=== PATIENT | male | born 1990 | race Caucasian/White ===

== ENCOUNTER 2018-05-04 17:47 | Emergency (ER) | payer BC ==
--- NOTE | 2018-05-04 17:57 | EDPHY ---
H & P Stated Complaint: SI Time Seen by Provider: 05/04/18 17:54 HPI/ROS: HPI: This is a 27-year-old male who presents with Chief Complaint: Depression, suicidal thoughts Location: psych Quality: Depression, suicidal Duration: Unknown Signs and Symptoms: no auditory hallucinations, no visual hallucinations, + suicidal ideation with a plan, no homicidal ideation, no paranoia Timing: Acute on chronic Severity: Moderate to severe Context: Patient is a student at [employer], presents voluntarily with worsening severe major depression and suicidal thoughts. He reports that he would drink excessively and take pills in order to end his life. He reports that Friday he took 15 pills of Benadryl in order to go to sleep. He reports that he "would not mind going to sleep and never waking up." Originally from [place]. 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 Patient reports that it is not unusual for him to take 15-30 pills of Benadryl at a time. Patient reports that he has a history of major depression and takes a medication for at a low-dose but is unsure of the name. Reports compliance with taking his psychiatric medications. Patient further reports that he does not feel safe being alone. Modifying Factors: Above Comment: ROS: A comprehensive 10 system review of systems is otherwise negative aside from elements mentioned in the history of present illness. MEDICAL/SURGICAL/SOCIAL HISTORY: Medical history: Depression, asthma Surgical history: Denies Social history: Student at [employer]. Family history noncontributory. CONSTITUTIONAL: Well-developed, well-nourished, adult white male, perez, awake and alert, no obvious distress HEENT: Atraumatic and normocephalic, PERRL, EOMI. Nares patent; no rhinorrhea; no nasal mucosal edema. Tympanic membranes clear. Oropharynx clear, no exudate and moist pink mucosa. Airway patent. No lymphadenopathy. No meningismus. Cardiovascular: Normal S1/S2, regular rate, regular rhythm, without murmur rub or gallop. PULMONARY/CHEST: Symmetrical and nontender. Clear to auscultation bilaterally. Good air movement. No accessory muscle usage. ABDOMEN: Soft, nondistended, nontender, no rebound, no guarding, no peritoneal signs, no masses or organomegaly. No CVAT. EXTREMITIES: 2/2 pulses, strength 5/5, no deformities, no clubbing, no cyanosis or edema. NEUROLOGICAL: no focal neuro deficits. GCS 15. Tick noted of closing eyes repeatedly during conversation. SKIN: Warm and dry, no erythema. no rash. Good capillary refill. PSYCH: Poor eye contact, no flight of ideas, organized thought process, poor insight and judgment, no auditory hallucinations, no visual hallucinations, + suicidal ideation with a plan, no homicidal ideation, no paranoia Source: Patient, RN/MD Exam Limitations: No limitations - Personal History Current Tetanus/Diphtheria Vaccine: Yes Current Tetanus Diphtheria and Acellular Pertussis (TDAP): Yes - Medical/Surgical History Hx Asthma: Yes Hx Chronic Respiratory Disease: No Hx Diabetes: No Hx Cardiac Disease: No Hx Renal Disease: No Hx Cirrhosis: No Hx Alcoholism: No Hx HIV/AIDS: No Hx Splenectomy or Spleen Trauma: No Other PMH: depression, asthma, - Social History Smoking Status: Never smoked Constitutional: Initial Vital Signs Temperature (C) 37 C 05/04/18 17:51 Heart Rate 89 05/04/18 17:51 Respiratory Rate 16 05/04/18 17:51 Blood Pressure 163/91 H 05/04/18 17:51 O2 Sat (%) 98 05/04/18 17:51 O2 Delivery Mode Room Air Allergies/Adverse Reactions: acetaminophen [From Vicodin] Allergy (Unknown, Verified 05/04/18 17:50) cefaclor [From Ceclor] Allergy (Unknown, Verified 05/04/18 17:50) hydrocodone bitartrate [From Vicodin] Allergy (Unknown, Verified 05/04/18 17:50) Home Medications: Medication Instructions Recorded NK [No Known Home Meds] 04/29/13 Medical Decision Making ED Course/Re-evaluation: Placed on M1 hold upon arrival due to severe major depression and suicidal ideation with a plan. Labs and UDS ordered. Patient is currently calm and cooperative. No chemical interventions have been ordered. 1827: Labs reviewed and grossly unremarkable. Urine drug screen positive for marijuana. Medically clear for mental health evaluation. 2134: Notified by [facility] that patient will be evaluated in the morning. 0000: End of Shift. Signed over to Dr. Minor pending mental health evaluation in AM. This patient was seen under the supervision of my secondary supervising physician. I evaluated care for this patient independently. Discussed this patient with Dr. Burden. Differential Diagnosis: Differential diagnosis includes but is not limited to severe major depression, schizophrenia, bipolar disorder, intoxicant use, suicidal ideation, psychosis, mario alberto. - Data Points Laboratory Results: Laboratory Results 05/04/18 18:05 05/04/18 18:05 05/04/18 05/04/18 05/04/18 18:05 18:05 18:05 WBC 9.88 10^3/uL H 10^3/uL (3.80-9.50) RBC 5.41 10^6/uL 10^6/uL (4.40-6.38) Hgb 16.9 g/dL g/dL (13.7-17.5) Hct 48.5 % % (40.0-51.0) MCV 89.6 fL fL (81.5-99.8) MCH 31.2 pg pg (27.9-34.1) MCHC 34.8 g/dL g/dL (32.4-36.7) RDW 12.6 % % (11.5-15.2) Plt Count 304 10^3/uL 10^3/uL (150-400) MPV 9.1 fL fL (8.7-11.7) Neut % (Auto) 72.6 % % (39.3-74.2) Lymph % (Auto) 20.6 % % (15.0-45.0) [place] % (Auto) 4.9 % % (4.5-13.0) Eos % (Auto) 1.3 % % (0.6-7.6) Baso % (Auto) 0.3 % % (0.3-1.7) Nucleat RBC Rel Count 0.0 % % (0.0-0.2) Absolute Neuts (auto) 7.17 10^3/uL H 10^3/uL (1.70-6.50) Absolute Lymphs (auto) 2.04 10^3/uL 10^3/uL (1.00-3.00) Absolute Monos (auto) 0.48 10^3/uL 10^3/uL (0.30-0.80) Absolute Eos (auto) 0.13 10^3/uL 10^3/uL (0.03-0.40) Absolute Basos (auto) 0.03 10^3/uL 10^3/uL (0.02-0.10) Absolute Nucleated RBC 0.00 10^3/uL 10^3/uL (0-0.01) Immature Gran % 0.3 % % (0.0-1.1) Immature Gran # 0.03 10^3/uL 10^3/uL (0.00-0.10) Sodium 141 mEq/L mEq/L (135-145) Potassium 4.0 mEq/L mEq/L (3.3-5.0) Chloride 102 mEq/L mEq/L (97-110) Carbon Dioxide 27 mEq/l mEq/l (22-31) Anion Gap 12 mEq/L mEq/L (6-14) BUN 13 mg/dL mg/dL (7-23) Creatinine 0.9 mg/dL mg/dL (0.7-1.3) Estimated GFR > 60 Glucose 105 mg/dL H mg/dL (70-100) Calcium 10.3 mg/dL mg/dL (8.5-10.4) Urine Opiates Screen NEGATIVE (NEGATIVE) Urine Barbiturates NEGATIVE (NEGATIVE) Ur Phencyclidine Scrn NEGATIVE (NEGATIVE) Ur Amphetamine Screen NEGATIVE (NEGATIVE) U Benzodiazepines Scrn NEGATIVE (NEGATIVE) Urine Cocaine Screen NEGATIVE (NEGATIVE) U Marijuana (THC) Screen NON-NEGATIVE H (NEGATIVE) Ethyl Alcohol < 10 mg/dL mg/dL (0-10) Departure - Departure Clinical Impression: Depression with suicidal ideation
[2018-05-04 18:12] LABS: PLATELET COUNT 304 10^3/uL (150-400)
[2018-05-04 22:18] VITALS: BP 135/89
--- NOTE | 2018-05-04 23:42 | ASMTTLCEVL ---
TLC Evaluation - Basic Information Evaluation Start Date and 05/04/2018 07:15 PM Time Hospital Status Answers: M1 Hold 72-hr M1 Hold Start Date 05/04/2018 06:05 PM and Time Patient statement Notes: I guess I just thought about wanting to come for a long time. Samantha been close for a long time. Narrative Notes: Pt is a 27 year old male who self presented to [facility] Ed complaining of worsening depression and SI. Pt reported he would drink excessively and take pills in order to end his life. Pt currently is taking 15-30 Benadryl a night to sleep and stated he, would not mind going to sleep and never waking up. Pt reports he has felt this way his whole life. Pt reported initially to the nurse that he was 10 on the suicide scale but told this chief writer that he now feels like he is a 7. Pt stated he had spoken with his boss earlier today who encouraged him to come to the ED. Pt stated he also reached out to his sister who lives in [place]. Pts sister Grisel and father stated pt told them that he feels like he is addicted to Benadryl and cannot sleep without it. He has tried to stop but cannot sleep when he stops taking it. Pt told them he hallucinates when he takes large doses of the medication. Father stated he s concerned that pt may go home and drink and take a bunch of pills and feels that pt needs to be on a mood stabilizer. Grisel stated pt is usually good at reaching out when he is feeling depressed, like he did kate. Father stated pt is very successful with his work and is very functional but they both are concerned about his depression and feel like he needs to see a psychiatrist. Diagnosis History Notes: Pt stated he has been dx with depression. Prior suicide attempts Notes: Pt stated, not seriously. Just lots of Benadryl. Prior hospitalizations Notes: Pt denied. Treatment Responses Notes: N/A History of violence Notes: Pt denied any hx of violence. Therapist: None Psychiatrist: None Medications (name, dosage, route, freq uency) Notes: Zoloft 25mg Allergies/Reaction Notes: Vicodin Sleep Notes: Pt stated he doesnt sleep well. Appetite Notes: Wnl Medical/Surgical history Notes: Pt reports he has asthma. Substance use history (frequency, intensity, his tory, duration) Notes: Pt stated he drinks on the weekends and sometimes more. Pt reports he smokes marijuanna approx 4x a month. Pt reported he has also used mushrooms with the last time being 2 years ago. Pt's utox was positive or marijuanna, bal was.0. Family composition Notes: Pt has 2 brothers and 1 sister. He reports he is very close to his sister. Pt reports having a good relationship with his mother. Pts parents live in [place]. Need for family Answers: No participation in patient's care Family psychiatric/substance abuse history Notes: Pt stated, Yeah everyone. Developmental history Notes: Pt stated he grew up in [place] with his mother, 2 brothers and sister. He stated his parents when he was 1 years old. Pt stated he sustained multiple concussions from ages [age], then some when I was a teenager. Pt stated he has LOC 2 times. Pt denied any childhood abuse or trauma. Abuse concerns Answers: None Marital status/children Notes: Unmarried, no children. Living situation Notes: Pt lives in [place] alone. Sexual history/orientation Notes: Pt reports he is heterosexual. Peer support/family strengths Notes: Pt stated he has limited support system. Education level/history Notes: Pt stated he has limited support system. Pts sister is a good support. 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 Notes: None reported. Legal Notes: Pt denied any legal problems. Yarsani/Spiritual Notes: Unable to assess. Leisure Notes: Unable to assess. Collateral Notes: Father Sister Patient's strengths Answers: Intelligent (Please select at least TWO strengths): Motivated for Treatment Supportive Family Willingness TLC Evaluation - Mental Status Exam Appearance: Answers: Appropriate Eye Contact: Answers: Good/Direct Mood: Answers: Euthymic Affect: Answers: Incongruent w/ Mood Behavior: Answers: Cooperative Guarded Speech: Answers: Relevant Logical Clear Coherent Thought Process: Answers: Organized Oriented Alert Intact Insight: Answers: Fair Judgement: Answers: Good Depression Answers: Sad Mood Signs/Symptoms: Hallucinations: Answers: None Pt reported to have Answers: No suicidal/self-injuring ideation/behavior? Pt reported to be making Answers: Yes suicidal/self-injuring threats? Pt reported to have Answers: No aggression/assault ideation/behavior? Pt reported to be making Answers: No aggression/assault threats? Pt exhibits inability to Answers: No care for self/grave disability? Ideation/behavior is Answers: No chronic? Patient has a specific Answers: No plan? Pt has access to means to Answers: No execute the plan? Ideation involves Answers: No serious/lethal intent? Ideation has Answers: No delusional/hallucinatory content? History of Answers: No suicidal/self-injuring ideation, behavior, or threats? History of Answers: No aggressive/assaultive ideation, behavior, or threats? History of serious Answers: No physical harm to self/others while in treatment setting? TLC Evaluation - Suicide/Homicide Risk Suicide Risk Factors: Answers: Alcohol/Heavy Drug Use Inadequate Social Support Major Depression Homicide/violence risk Answers: None factors: Current Suicidal Answers: No Ideation? Current Suicide Ideation Pt reported having SI but stated he felt better Frequency: after being in the ED for a few hours Current Suicidal Ideation Answers: Yes in the Past 48 Hours? Current Suicidal Ideation Answers: Yes in the Past Month? Current Suicidal Answers: Yes Ideation, Worst Ever? Suicide Internal Answers: Absence of Psychosis Protective Factors: Frustration Tolerance Suicide External Answers: Responsibility to Pets Protective Factors: Social Support Ranking of patient's Answers: Low suicidal risk: Ranking of patient's Answers: Low homicidal risk: TLC Evaluation - Wrap-up AXIS I Diagnosis (include DSM-V and ICD-10 codes), must also be entered in [employer], which is the source of truth. Notes: Major Depressive Disorder, recurrent, severe 296.33 (F33.2) In consultation with [facility] Ed physician Mayo Burden MD and on-call psychiatrist Lester Antoine MD, both concurred that pt does not appear to meet 27-65 criteria requiring psychiatric hospitalization as pt does not appear to be an imminent risk of harm to self/others/gravely disabled due to a mental illness condition. Evaluation End Date and 05/04/2018 11:35 PM Time (HH:PABLO): Date Signed: 05/04/2018 11:41 PM Electronically Signed By:Anita Vieyra
--- NOTE | 2018-05-04 23:44 | ASMTTCLDSP ---
TLC Discharge Disposition Disposition Notes: Notes: Pt was given resources for [facility] program. This teletypewriter operator called [facility] to see when they would have availabilty for an intake appt and was told tomorrow. This teletypewriter operator passed this information onto pt and encouraged pt to call in the AM to set up an appt. Pt was also given suicide hotlines/crisis numbers. Pt will be staying with sister and mother kate for support. Discharge Concerns/Recommendations: Notes: In consultation with [facility] Ed physician Mayo Burden MD and on-call psychiatrist Lester Antoine MD, both concurred that pt does not appear to meet 27-65 criteria requiring psychiatric hospitalization as pt does not appear to be an imminent risk of harm to self/others/gravely disabled due to a mental illness condition. Date and time M1 hold 05/04/2018 10:45 PM vacated (time format is hh:mm): Type of Hold: Answers: M1/72-hour Hold Date Signed: 05/04/2018 11:43 PM Electronically Signed By:Anita Vieyra
== END 2018-05-04 23:30 | disposition home or self-care (01) ==
DX: R45.851 Suicidal ideations (principal); F32.9 Major depressive disorder, single episode, unspecified
CPT/HCPCS: 80305; G0480

== ENCOUNTER 2018-06-07 21:25 | Emergency (ER) | payer BC ==
[2018-06-07] MEDS ORDERED: IPRATROPIUM/ALBUTEROL 3 ML DEYVIAL IH ONE (21:34)
--- NOTE | 2018-06-07 21:47 | EDPHY ---
H & P Stated Complaint: cough sob asthma Time Seen by Provider: 06/07/18 21:47 HPI/ROS: HPI CHIEF COMPLAINT: Cough, shortness of breath, wheezing. HISTORY OF PRESENT ILLNESS: 27-year-old male, otherwise healthy, does have a history of asthma he has never been intubated for asthma, he has been hospitalized, presents emergency room with cough, wheezing, shortness of breath x1 week. He states he got a cold early in the week in on Friday he started feeling short of breath wheezing. He denies chest pain, denies fever, denies productive sputum. Main complaint wheezing. He ran out of his inhaler at home. Past Medical History: Asthma no history of intubation. Past Surgical History: Denies surgical history Social History: Denies drugs alcohol tobacco Family History: Noncontributory ROS REVIEW OF SYSTEMS: 10 Systems were reviewed and negative with the exception of the elements mentioned in the history of present illness. Exam Constitutional triage nursing summary reviewed, vital signs reviewed, awake/ alert. Vital signs noted at triage. No hypoxia Eyes normal conjunctivae and sclera, EOMI, PERRLA. HENT normal inspection, atraumatic, moist mucus membranes, no epistaxis, neck supple/ no meningismus, no raccoon eyes. Respiratory decreased breath sounds bilaterally, faint wheezing bilaterally. Cardiovascular rate normal, regular rhythm, no murmur, no edema, distal pulses normal. Gastrointestinal soft, non-tender, no rebound, no guarding, normal bowel sounds, no distension, no pulsatile mass. Genitourinary no CVA tenderness. Musculoskeletal no midline vertebral tenderness, full range of motion, no calf swelling, no tenderness of extremities, no meningismus, good pulses, neurovascularly intact. Skin pink, warm, & dry, no rash, skin atraumatic. Neurologic awake, alert and oriented x 3, AAOx3, moves all 4 extremities equally, motor intact, sensory intact, CN II-XII intact, normal cerebellar, normal vision, normal speech. Psychiatric normal mood/affect. Heme/Lymph/Immune no lymphadenopathy. Differential Diagnosis: Includes but is not limited to in a particular order acute asthma, bronchitis, viral syndrome, viral pneumonia, bacterial pneumonia Medical Decision Making: Plan for this patient chest x-ray, DuoNeb breathing treatment, prednisone 60 mg and re-evaluate. Take-home inhaler. Re-evaluation: 2301: Patient re-evaluated resting comfortably no acute distress. Feels much better after DuoNeb breathing treatment. Good air movement. No hypoxia. He would like to go home. Denies chest pain or shortness of breath. I did notice that he has clubbing on his fingers. He has never seen a rehab care assistant. Given that the patient has clubbing on exam and underlying"asthma"I do recommend he follows up with pulmonology. He has never seen a rehab care assistant. Plan for tonight prednisone x5 days, albuterol inhaler. Chest x-ray reviewed no pneumonia Recommend close follow-up Recommend return emergency room if there is worsening shortness of breath, fever , not doing well. Patient understands this and is comfortable this plan. Patient ambulated well around the emergency room at 11:14 p.m., pulse ox 96%. Feels fine. No shortness of breath no distress. Albuterol inhaler provided for take-home. Prednisone for 5 days. Return precautions discussed Recommend follow-up pulmonology. Source: Patient - Personal History Current Tetanus/Diphtheria Vaccine: Yes Current Tetanus Diphtheria and Acellular Pertussis (TDAP): Yes - Medical/Surgical History Hx Asthma: Yes Hx Chronic Respiratory Disease: No Hx Diabetes: No Hx Cardiac Disease: No Hx Renal Disease: No Hx Cirrhosis: No Hx Alcoholism: No Hx HIV/AIDS: No Hx Splenectomy or Spleen Trauma: No Other PMH: depression, asthma, - Social History Smoking Status: Never smoked Constitutional: Initial Vital Signs Temperature (C) 36.3 C 06/07/18 21:29 Heart Rate 93 06/07/18 21:29 Respiratory Rate 18 06/07/18 21:29 Blood Pressure 95/78 L 06/07/18 21:29 O2 Sat (%) 95 06/07/18 21:29 O2 Delivery Mode Room Air Allergies/Adverse Reactions: acetaminophen [From Vicodin] Allergy (Unknown, Verified 05/04/18 17:50) cefaclor [From Ceclor] Allergy (Unknown, Verified 05/04/18 17:50) hydrocodone bitartrate [From Vicodin] Allergy (Unknown, Verified 05/04/18 17:50) Home Medications: Medication Instructions Recorded Albuterol 06/07/18 Zoloft 100mg (*) 06/07/18 predniSONE 60 mg PO DAILY #15 tab 06/07/18 traZODone 06/07/18 Medical Decision Making - Diagnostics Imaging Results: Imaging Impressions Chest X-Ray 06/07/18 21:50 Impression: Negative. - Data Points Medications Given: Discontinued Medications Albuterol Sulfate (Proventil Inh Prepack) 1 mdi TAKEHOME EDNOW ONE Stop: 06/07/18 21:52 Last Admin: 06/07/18 21:55 Dose: 1 mdi Albuterol/Ipratropium (Duoneb) 6 ml IH EDNOW ONE Stop: 06/07/18 21:35 Last Admin: 06/07/18 21:38 Dose: 6 ml Prednisone (Prednisone) 60 mg PO EDNOW ONE Stop: 06/07/18 21:50 Last Admin: 06/07/18 21:54 Dose: 60 mg Departure - Departure Disposition: Home, Routine, Self-Care Clinical Impression: Asthma Condition: Good Instructions: Asthma (ED) Additional Instructions: 1. Please follow up with the rehab care assistant 2. Return emergency room if worsening symptoms questions or concerns Referrals: NONE *PRIMARY CARE P,. [Primary Care Provider] - As per Instructions Riley Barone MD [Medical Doctor] - As per Instructions Prescriptions: predniSONE 60 mg PO DAILY #15 tab
[2018-06-07] MEDS ORDERED: predniSONE 20 MG TAB PO ONE (21:49)
[2018-06-07] MEDS ORDERED: ALBUTEROL INH PREPACK MDI TAKEHOME ONE (21:51)
[2018-06-07 23:15] VITALS: BP 119/79
== END 2018-06-07 23:20 | disposition home or self-care (01) ==
DX: J45.909 Unspecified asthma, uncomplicated (principal); F32.9 Major depressive disorder, single episode, unspecified
CPT/HCPCS: J7512

== ENCOUNTER 2018-09-05 01:02 | Emergency (ER) | payer BC ==
[2018-09-05] MEDS ORDERED: NS 1,000 ML IV ONE ×2 (01:07)
[2018-09-05] MEDS ORDERED: ONDANSETRON 4 MG/2 ML VIAL IVP ONE (01:07)
--- NOTE | 2018-09-05 01:58 | EDPHY ---
H & P Stated Complaint: etoh - Personal History Current Tetanus Diphtheria and Acellular Pertussis (TDAP): Yes - Medical/Surgical History Hx Asthma: Yes Hx Chronic Respiratory Disease: No Hx Diabetes: No Hx Cardiac Disease: No Hx Renal Disease: No Hx Cirrhosis: No Hx Alcoholism: No Hx HIV/AIDS: No Hx Splenectomy or Spleen Trauma: No Other PMH: depression, asthma, - Social History Smoking Status: Never smoked Time Seen by Provider: 09/05/18 01:07 HPI/ROS: Chief complaint: Alcohol intoxication History of present illness: This is a 28-year-old male brought to the emergency department by EMS for evaluation of alcohol intoxication. Patient was apparently playing a board game with his friends this evening. During that time he became overly intoxicated. Friends were concerned for his well-being and contacted EMS. Patient is complaining of feeling sick. There has been nausea and vomiting. EMS did start an IV, and gave him 4 mg of Zofran. Field blood sugar reported over 100. When I talk to him I am able to get him to open his eyes, he does endorse drinking alcohol tonight. Denies other drugs. Not able to further hold a conversation with him. Review of systems: Unable to obtain given level of intoxication. (Jeremy Serra) - Physical Exam Exam: General Appearance: Alert to verbal stimuli Eyes: PERRLA Respiratory: Lungs clear to auscultation bilaterally Cardiac: Regular rate and rhythm. Gastrointestinal: Bowel sounds normal. Soft, nondistended, nontender. Neurological: Alert to verbal stimuli. Skin: Warm and dry Musculoskeletal: Head without apparent tenderness, crepitus or bony deformity. Purposely moving all extremities. (Jeremy Serra) Constitutional: Initial Vital Signs Temperature (C) 36.4 C 09/05/18 01:06 Heart Rate 100 09/05/18 01:06 Respiratory Rate 16 09/05/18 01:06 Blood Pressure 136/122 H 09/05/18 01:06 O2 Sat (%) 93 09/05/18 01:06 O2 Delivery Mode Room Air Allergies/Adverse Reactions: acetaminophen [From Vicodin] Allergy (Unknown, Verified 09/05/18 01:05) cefaclor [From Ceclor] Allergy (Unknown, Verified 09/05/18 01:05) hydrocodone bitartrate [From Vicodin] Allergy (Unknown, Verified 09/05/18 01:05) Home Medications: Medication Instructions Recorded Albuterol 06/07/18 Zoloft 100mg (*) 06/07/18 predniSONE 60 mg PO DAILY #15 tab 06/07/18 traZODone 06/07/18 Medical Decision Making ED Course/Re-evaluation: Patient seen under the supervision of my secondary supervising physician Dr. Morris Schneider patient is brought to the emergency department after becoming overly intoxicated while playing a game this evening. He does respond to verbal stimuli. Patient is given 4 mg of Zofran IV, he is IV hydrated. He will need to sober up and be re-evaluated. The care of the patient was turned over to Dr. Morris Smith end of shift, 2:00 a.m.. (Jeremy Serra) 0415: Patient ambulatory, stable gait, clinically sober, as mom is at bedside. They would like to go home. He answers my questions appropriately admits drinking too much alcohol. He ambulates well, has no complaints. He is clinically sober and safe for discharge. (Morris Smith) Differential Diagnosis: Included but not limited to alcohol intoxication, polysubstance abuse, withdrawal (Jeremy Serra) - Data Points Medications Given: Discontinued Medications Sodium Chloride (Ns) 1,000 mls @ 0 mls/hr IV EDNOW ONE; Wide Open PRN Reason: Protocol Stop: 09/05/18 01:08 Last Admin: 09/05/18 01:17 Dose: 1,000 mls Sodium Chloride (Ns) 1,000 mls @ 0 mls/hr IV EDNOW ONE; Wide Open PRN Reason: Protocol Stop: 09/05/18 01:08 Last Admin: 09/05/18 01:56 Dose: 1,000 mls Ondansetron HCl (Zofran) 4 mg IVP EDNOW ONE Stop: 09/05/18 01:08 Last Admin: 09/05/18 01:17 Dose: 4 mg Departure - Departure Disposition: Home, Routine, Self-Care Clinical Impression: Alcoholic intoxication Qualifiers: Complication of substance-induced condition: uncomplicated Qualified Code(s): F10.920 - Alcohol use, unspecified with intoxication, uncomplicated Condition: Good Instructions: Alcohol Intoxication (ED) Additional Instructions: Follow-up with a primary care doctor for recheck. Drink plenty of water and electrolyte drinks E well-balanced meals to recover. Avoid the use of alcohol. Consider discussing with your doctor potential for alcohol addiction. If symptoms worsen or new symptoms develop return to the emergency room for recheck. Referrals: NONE *PRIMARY CARE P,. [Unknown] - As per Instructions [facility],. [Clinic] - As per Instructions Morris Tom MD [Medical Doctor] - As per Instructions
[2018-09-05 04:15] VITALS: BP 130/76
== END 2018-09-05 04:15 | disposition home or self-care (01) ==
LOC: EDUNIT#
DX: F10.920 Alcohol use, unspecified with intoxication, uncomplicated (principal); E86.9 Volume depletion, unspecified
CPT/HCPCS: 96374